=== PATIENT | female | born 1950 | race Caucasian/White ===

== ENCOUNTER 2017-03-01 12:37 | Inpatient (IN) | payer OTHER ==
[~2017-03-01] VITALS: Ht 162.6 cm; Wt 67.1 kg
[~2017-03-01 12:37] MED LIST: ALBU8.5H IH; ASPI81 PO; BACL20TA PO; BECL8.7A5 IH; CARV6 PO; FURO20 PO; INSLAN SQ; INSNOV SQ; LANS15CA14 PO; LISI-622 PO; METF1000 PO; TRAM50TA4 PO
[2017-03-01] MEDS ORDERED: DICL2100G TP (13:05)
[2017-03-01] MEDS ORDERED: NIFE10 PO (13:05)
[2017-03-01] MEDS ORDERED: GABA-531 PO (13:05)
[2017-03-01] MEDS ORDERED: SPIR25 PO (13:05)
[2017-03-01] MEDS ORDERED: LOSA50TA37 PO (13:05)
[2017-03-01] MEDS ORDERED: FAMO20 PO (13:05)
[2017-03-01] MEDS ORDERED: NITR.4 SL (13:05)
[2017-03-01] MEDS ORDERED: LEVO100 PO (13:05)
[2017-03-01] MEDS ORDERED: LACT30L PO (13:05)
[2017-03-01] MEDS ORDERED: ASCO500 PO (13:05)
[2017-03-01] MEDS ORDERED: ATOR20TA86 PO (13:05)
[2017-03-01] MEDS ORDERED: LORA10TA7 PO (13:05)
[2017-03-01] MEDS ORDERED: AMLO-511 PO (13:05)
[2017-03-01] MEDS ORDERED: FERR-89 PO (13:05)
[2017-03-01] MEDS ORDERED: PRIM50 PO (13:07)
[2017-03-01] MEDS ORDERED: BUME1TAB30 PO (13:07)
[2017-03-01 13:21] LABS: GLUCOSE,POINT OF CARE 189 MG/DL (70-110)
[2017-03-01 14:11] LABS: BASOPHILS % (AUTO) 0.2 % (0.0-2.0); EOSINOPHILS % (AUTO) 0.3 % (1.0-6.0); HEMOGLOBIN 8.5 g/dL (12.0-16.0); LYMPHOCYTES # (AUTO) 0.7 K/uL (1.0-4.8); LYMPHOCYTES % (AUTO) 9.6 % (22.0-44.0); MEAN CORPUSCULAR HEMOGLOBIN 29.7 pg (26.0-34.0); MEAN CORPUSCULAR HGB CONC 35.4 G/dL (31.0-37.0); MEAN CORPUSCULAR VOLUME 84 fL (80-100); MONOCYTES # (AUTO) 0.6 K/uL (0.1-1.0); MONOCYTES % (AUTO) 8.7 % (2.0-9.0); NEUTROPHILS # (AUTO) 5.6 K/uL (1.8-7.7); NEUTROPHILS % (AUTO) 81.2 % (40.0-70.0); PLATELET COUNT (AUTO) 338 K/uL (150-450); RED BLOOD CELL COUNT(AUTO) 2.87 MIL/uL (4.00-5.20); RED CELL DISTRIBUTION WIDTH 14.9 % (11.5-14.5); WHITE BLOOD COUNT (AUTO) 6.9 K/uL (4.5-11.0)
[2017-03-01] MEDS ORDERED: DIPHENOXYLATE/ATROP 2.5-0.025 MG TABLET PO ONE (14:15)
[2017-03-01 14:26] LABS: ALBUMIN 3.1 g/dL (3.4-5.0); BILIRUBIN,TOTAL 0.6 mg/dL (0.1-1.0); CALCIUM, TOTAL 8.5 mg/dL (8.8-10.5); CREATININE 1.44 mg/dL (0.60-1.30); POTASSIUM 3.6 mmol/L (3.5-5.1); TOTAL PROTEIN, SERUM 7.2 g/dL (6.4-8.2)
[2017-03-01] MEDS ORDERED: FUROSEMIDE 40 MG/4 ML VIAL IVP ONE (15:45)
[2017-03-01] MEDS ORDERED: ONDANSETRON HCL 4 MG/2 ML VIAL IVP PRN (16:00)
[2017-03-01] MEDS ORDERED: ACETAMINOPHEN 325 MG TABLET PO PRN (16:00)
[2017-03-01] MEDS ORDERED: ASPIRIN 81 MG CHEWABLE TABLET PO ONE (16:00)
[2017-03-01] MEDS ORDERED: 0.9% SODIUM CHLORIDE 10 ML SYRINGE IVP PRN (16:00)
[2017-03-01 17:23] VITALS: BP 153/69
[2017-03-01] MEDS ORDERED: ALBUTEROL SULFATE HFA 90 MCG/PUFF 8 GM INHALER IH PRN (17:30)
[2017-03-01] MEDS ORDERED: NITROGLYCERIN 0.4 MG SUBLINGUAL TABLET #25 SL PRN (17:30)
[2017-03-01] MEDS ORDERED: TraMADol HCL 50 MG TABLET PO PRN (17:30)
[2017-03-01] MEDS ORDERED: DEXTROSE 50%-WATER 25 GM/50 ML SYRINGE IVP PRN ×2 (17:45→18:00)
[2017-03-01] MEDS: MetFORMIN HCL 500 MG TABLET PO SCH (17:49)
[2017-03-01] MEDS ORDERED: INSULIN ASPART 100 UNITS/ML SQ PRN (18:00)
[2017-03-01 18:10] LABS: HEMATOCRIT 23.8 % (36-46); HEMOGLOBIN 8.4 g/dL (12.0-16.0); MEAN CORPUSCULAR HEMOGLOBIN 29.6 pg (26.0-34.0); MEAN CORPUSCULAR VOLUME 84 fL (80-100); PLATELET COUNT (AUTO) 338 K/uL (150-450); RED BLOOD CELL COUNT(AUTO) 2.82 MIL/uL (4.00-5.20); RED CELL DISTRIBUTION WIDTH 14.8 % (11.5-14.5); WHITE BLOOD COUNT (AUTO) 6.5 K/uL (4.5-11.0)
[2017-03-01] MEDS ORDERED: SODIUM CHLORIDE 0.9% 1,000 ML IV ONE (18:11)
[2017-03-01 18:30] LABS: BAND NEUTROPHILS % (MANUAL) 12 % (1-5); LYMPHOCYTES % (MANUAL) 11 % (22-44); TOTAL CELLS COUNTED 100
[2017-03-01] MEDS: MetroNIDAZOLE 500 MG/NACL 100 ML IV SCH (18:45)
[2017-03-01 19:28] VITALS: BP_SYST 126; BP_SYST 142; BP_DIAS 54; BP_DIAS 64
[2017-03-01] MEDS: FUROSEMIDE 20 MG/2 ML VIAL IVP SCH (20:48)
[2017-03-01] MEDS: LEVOFLOXACIN 250 MG/D5% WATER 50 ML IV SCH (20:48)
[2017-03-01] MEDS: BUMETANIDE 1 MG TABLET PO SCH (20:50)
[2017-03-01] MEDS: DICLOFENAC SODIUM 1% 100 GM GEL [2GM] TP SCH (20:50)
[2017-03-01] MEDS: GABAPENTIN 300 MG CAPSULE PO SCH (20:51)
[2017-03-01] MEDS: BACLOFEN 10 MG TABLET PO SCH (20:51)
[2017-03-01] MEDS: ATORVASTATIN CALCIUM 20 MG TABLET PO SCH (20:51)
[2017-03-01] MEDS: PRIMIDONE 50 MG TABLET PO SCH (20:52)
[2017-03-01] MEDS: INSULIN ASPART 100 UNITS/ML SQ PRN (20:55)
[2017-03-01] MEDS: LACTULOSE 20 GM/30 ML SOLUTION UDCUP PO SCH (21:00)
[2017-03-01 23:54] VITALS: BP 145/59
[2017-03-02 05:02] VITALS: BP 144/66
[2017-03-02] MEDS: MetroNIDAZOLE 500 MG/NACL 100 ML IV SCH ×2 (05:11→18:25)
[2017-03-02] MEDS: LEVOTHYROXINE SODIUM 100 MCG TABLET PO SCH (05:50)
[2017-03-02] MEDS: INSULIN ASPART 100 UNITS/ML SQ PRN ×3 (05:55→17:39)
[2017-03-02 06:17] LABS: GLUCOSE COMMENT 1 Received Meds; GLUCOSE,POINT OF CARE 162 MG/DL (70-110)
[2017-03-02 06:17] LABS: GLUCOSE,POINT OF CARE 224 MG/DL (70-110)
[2017-03-02 06:17] LABS: GLUCOSE,POINT OF CARE 133 MG/DL (70-110)
[2017-03-02 07:33] LABS: ALBUMIN 2.6 g/dL (3.4-5.0); BILIRUBIN,TOTAL 0.4 mg/dL (0.1-1.0); CALCIUM, TOTAL 8.3 mg/dL (8.8-10.5); CREATININE 1.49 mg/dL (0.60-1.30); MAGNESIUM 1.7 mg/dL (1.80-2.40); POTASSIUM 3.9 mmol/L (3.5-5.1); TOTAL PROTEIN, SERUM 6.4 g/dL (6.4-8.2)
[2017-03-02 07:40] VITALS: BP 156/70
[2017-03-02] MEDS ORDERED: FERROUS SULFATE 325 MG EC TABLET PO SCH (08:00)
[2017-03-02] MEDS ORDERED: NIFEdipine 10 MG CAPSULE PO SCH (09:00)
[2017-03-02] MEDS: FERROUS SULFATE 325 MG EC TABLET PO SCH (09:05)
[2017-03-02] MEDS: MetFORMIN HCL 500 MG TABLET PO SCH ×2 (09:06→17:37)
[2017-03-02] MEDS: FUROSEMIDE 20 MG/2 ML VIAL IVP SCH ×2 (09:06→21:19)
[2017-03-02] MEDS: ASPIRIN 81 MG CHEWABLE TABLET PO SCH (09:08)
[2017-03-02] MEDS: BUMETANIDE 1 MG TABLET PO SCH ×2 (09:08→21:19)
[2017-03-02] MEDS: SPIRONOLACTONE 25 MG TABLET PO SCH (09:08)
[2017-03-02] MEDS: PRIMIDONE 50 MG TABLET PO SCH ×3 (09:09→21:19)
[2017-03-02] MEDS: LOSARTAN POTASSIUM 50 MG TABLET PO SCH (09:09)
[2017-03-02] MEDS: LORATADINE 10 MG TABLET PO SCH (09:09)
[2017-03-02] MEDS: AmLODIPine BESYLATE 5 MG TABLET PO SCH (09:10)
[2017-03-02] MEDS: GABAPENTIN 300 MG CAPSULE PO SCH ×3 (09:10→21:19)
[2017-03-02] MEDS: ASCORBIC ACID 500 MG TABLET PO SCH (09:10)
[2017-03-02] MEDS: FAMOTIDINE 20 MG TABLET PO SCH (09:10)
[2017-03-02] MEDS: DICLOFENAC SODIUM 1% 100 GM GEL [2GM] TP SCH ×4 (09:11→21:19)
[2017-03-02] MEDS: INSULIN DETEMIR 100 UNITS/ML SQ SCH (09:16)
[2017-03-02] MEDS: LACTULOSE 20 GM/30 ML SOLUTION UDCUP PO SCH ×2 (09:29→21:19)
[2017-03-02] MEDS ORDERED: MAGNESIUM SULFATE 2 GM in DEXTROSE 5%-WATER 50 ML IV ONE (10:45)
[2017-03-02 11:51] VITALS: BP 145/69
[2017-03-02] MEDS: SODIUM CHLORIDE 0.9% 1,000 ML IV SCH (11:51)
[2017-03-02 12:17] LABS: GLUCOSE COMMENT 1 Received Meds; GLUCOSE,POINT OF CARE 250 MG/DL (70-110)
[2017-03-02 12:18] LABS: GLUCOSE COMMENT 1 Received Meds; GLUCOSE,POINT OF CARE 297 MG/DL (70-110)
[2017-03-02 16:14] VITALS: BP 142/71
[2017-03-02] MEDS: LEVOFLOXACIN 250 MG/D5% WATER 50 ML IV SCH (17:37)
[2017-03-02 19:49] VITALS: BP 150/68
[2017-03-02] MEDS: BACLOFEN 10 MG TABLET PO SCH (21:19)
[2017-03-02] MEDS: ATORVASTATIN CALCIUM 20 MG TABLET PO SCH (21:19)
[2017-03-03 00:43] VITALS: BP 138/64
[2017-03-03 03:48] VITALS: BP 140/64
[2017-03-03] MEDS: MetroNIDAZOLE 500 MG/NACL 100 ML IV SCH ×2 (05:42→17:47)
[2017-03-03] MEDS: LEVOTHYROXINE SODIUM 100 MCG TABLET PO SCH (06:17)
[2017-03-03 06:29] LABS: ALBUMIN 2.5 g/dL (3.4-5.0); BILIRUBIN,TOTAL 0.4 mg/dL (0.1-1.0); CALCIUM, TOTAL 8.2 mg/dL (8.8-10.5); CREATININE 1.58 mg/dL (0.60-1.30); MAGNESIUM 1.8 mg/dL (1.80-2.40); POTASSIUM 3.8 mmol/L (3.5-5.1); TOTAL PROTEIN, SERUM 6.2 g/dL (6.4-8.2)
[2017-03-03 07:16] VITALS: BP 164/79
[2017-03-03] MEDS: LACTULOSE 20 GM/30 ML SOLUTION UDCUP PO SCH (08:08)
[2017-03-03] MEDS: FAMOTIDINE 20 MG TABLET PO SCH (08:19)
[2017-03-03] MEDS: LOSARTAN POTASSIUM 50 MG TABLET PO SCH (08:19)
[2017-03-03] MEDS: FERROUS SULFATE 325 MG EC TABLET PO SCH (08:19)
[2017-03-03] MEDS: MetFORMIN HCL 500 MG TABLET PO SCH ×2 (08:19→17:58)
[2017-03-03] MEDS: AmLODIPine BESYLATE 5 MG TABLET PO SCH (08:19)
[2017-03-03] MEDS: GABAPENTIN 300 MG CAPSULE PO SCH ×2 (08:19→16:10)
[2017-03-03] MEDS: LORATADINE 10 MG TABLET PO SCH (08:20)
[2017-03-03] MEDS: ASCORBIC ACID 500 MG TABLET PO SCH (08:20)
[2017-03-03] MEDS: BUMETANIDE 1 MG TABLET PO SCH (08:20)
[2017-03-03] MEDS: ASPIRIN 81 MG CHEWABLE TABLET PO SCH (08:20)
[2017-03-03] MEDS: SPIRONOLACTONE 25 MG TABLET PO SCH (08:21)
[2017-03-03] MEDS: FUROSEMIDE 20 MG/2 ML VIAL IVP SCH (08:21)
[2017-03-03] MEDS: DICLOFENAC SODIUM 1% 100 GM GEL [2GM] TP SCH ×3 (08:22→16:10)
[2017-03-03] MEDS: PRIMIDONE 50 MG TABLET PO SCH ×2 (08:22→16:10)
[2017-03-03] MEDS: INSULIN DETEMIR 100 UNITS/ML SQ SCH (08:25)
[2017-03-03 11:00] VITALS: BP 144/70
[2017-03-03 11:21] LABS: GLUCOSE COMMENT 1 Received Meds; GLUCOSE,POINT OF CARE 214 MG/DL (70-110)
[2017-03-03 11:22] LABS: GLUCOSE,POINT OF CARE 95 MG/DL (70-110)
[2017-03-03 11:22] LABS: GLUCOSE,POINT OF CARE 100 MG/DL (70-110)
[2017-03-03 11:23] LABS: GLUCOSE COMMENT 1 Received Meds; GLUCOSE,POINT OF CARE 162 MG/DL (70-110)
[2017-03-03] MEDS: SODIUM CHLORIDE 0.9% 1,000 ML IV SCH (12:04)
[2017-03-03] MEDS: INSULIN ASPART 100 UNITS/ML SQ PRN (12:09)
[2017-03-03] MEDS ORDERED: METR250T PO (15:50)
[2017-03-03] MEDS ORDERED: VANC125C12 PO (15:51)
[2017-03-03 16:33] VITALS: BP 148/69
[2017-03-03] MEDS: LEVOFLOXACIN 250 MG/D5% WATER 50 ML IV SCH (17:48)
== END 2017-03-03 18:40 | disposition home health service (06) | DRG 249 ==
LOC: EMS 12:38 → 5N 16:57
PROVIDERS: ADMIT Internal Medicine; ATTEND Internal Medicine
DX: R19.7 Diarrhea, unspecified (principal); E11.22 Type 2 diabetes mellitus with diabetic chronic kidney disease; E44.0 Moderate protein-calorie malnutrition; I13.0 Hypertensive heart and chronic kidney disease with heart failure and stage 1 through stage 4 chronic kidney disease, or unspecified chronic kidney disease; I50.9 Heart failure, unspecified; E11.65 Type 2 diabetes mellitus with hyperglycemia; E87.70 Fluid overload, unspecified; N18.9 Chronic kidney disease, unspecified; E03.9 Hypothyroidism, unspecified; F32.9 Major depressive disorder, single episode, unspecified; D64.9 Anemia, unspecified; E87.1 Hypo-osmolality and hyponatremia; G43.909 Migraine, unspecified, not intractable, without status migrainosus; G89.29 Other chronic pain; M54.9 Dorsalgia, unspecified; M79.89 Other specified soft tissue disorders; R79.89 Other specified abnormal findings of blood chemistry; Z79.82 Long term (current) use of aspirin; Z79.899 Other long term (current) drug therapy; Z68.25 Body mass index [BMI] 25.0-25.9, adult; E87.6 Hypokalemia
CPT/HCPCS: 51702; 82962; 83735; 84443; 85007; 87324; 87449; 93005; 93306; 96374; 99285; J1940; J1956; J3475; J3490; J7030; J7060